=== PATIENT | female | born 1990 | race American Indian/Alaskan Native ===

== ENCOUNTER 2020-12-13 16:06 | Inpatient (IN) | payer OTHER | END 2020-12-15 17:17 | disposition home or self-care (01) | DRG 781 | LOC: TRG 16:06 → APU 16:08 → LD 18:04 | PROVIDERS: ADMIT Obstetrics & Gynecology | CPT/HCPCS: 36415; 80053; 80307; 81001; 83036; 83735; 84443; 85027; G0378; J7042; U0003 ==

== ENCOUNTER 2021-02-01 18:39 | Outpatient (CLI) | payer OTHER ==
[2021-02-01 19:18] VITALS: BP 100/65
[2021-02-01] MEDS ORDERED: ACETAMINOPHEN 500 MG TAB PO ONE (20:00)
[2021-02-01] MEDS ORDERED: lamoTRIgine 25 MG TAB PO ONE (20:00)
[2021-02-01] MEDS ORDERED: LACTATED RINGERS 500 ML IV ONE (20:20)
== END 2021-02-01 23:08 | disposition home or self-care (01) ==
LOC: TRG 18:39 → APU 18:41 → TRG 23:08
PROVIDERS: ATTEND Obstetrics & Gynecology
DX: O26.893 Other specified pregnancy related conditions, third trimester (principal); R42 Dizziness and giddiness; W19.XXXA Unspecified fall, initial encounter; Y93.89 Activity, other specified; Y92.89 Other specified places as the place of occurrence of the external cause; Y99.8 Other external cause status; Z3A.34 34 weeks gestation of pregnancy
CPT/HCPCS: 59025

== ENCOUNTER 2021-10-08 16:10 | Emergency (ER) | payer OTHER ==
[2021-10-08] MEDS ORDERED: KETOROLAC 10 MG TAB PO ONE (17:49)
[2021-10-08] MEDS ORDERED: CYCLOBENZAPRINE 10 MG TAB PO ONE (17:49)
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
[2021-10-08 19:43] VITALS: BP 136/78
== END 2021-10-08 19:41 | disposition home or self-care (01) ==
LOC: ED 16:10
DX: M25.511 Pain in right shoulder (principal); M54.9 Dorsalgia, unspecified; V89.2XXA Person injured in unspecified motor-vehicle accident, traffic, initial encounter; Y93.89 Activity, other specified; Y92.89 Other specified places as the place of occurrence of the external cause; Y99.8 Other external cause status
CPT/HCPCS: 99283